=== PATIENT | male | born 1945 | race Caucasian/White ===

== ENCOUNTER 2022-07-13 09:56 | Emergency (ER) | payer MEDICARE ==
[~2022-07-13] VITALS: Ht 177.8 cm; Wt 102.0 kg
[2022-07-13 10:10] VITALS: BP 149/84
[2022-07-13] MEDS ORDERED: LIPITOR10 M1 PO (10:16)
[2022-07-13] MEDS ORDERED: ASPIRIN81 MG PO (10:17)
[2022-07-13] MEDS ORDERED: ZESTRIL40 MG PO (10:17)
[2022-07-13] MEDS ORDERED: MELOXICAM7.5 MG PO (10:17)
[2022-07-13 10:31] VITALS: BP 137/87
[2022-07-13 10:40] LABS: BASO% 0.4 % (0-3); EOS% 5.9 % (0-8); HEMATOCRIT 43.3 % (39.0-50.0); HEMOGLOBIN 13.6 g/dl (14.0-18.0); IMMATURE GRANULOCYTES 0.2 % (0.0-5.0); LYMPH% 22.6 % (15-41); MEAN CORPUSCULAR HGB 30.8 pG CALC (26.0-32.0); MEAN CORPUSCULAR HGB CONC 31.4 g/dL CAL (32.0-36.0); MONO% 9.8 % (2-13); NEUT# 3.01 thou/uL (1.82-7.42); NEUT% 61.1 % (42-76); RED BLOOD COUNT 4.42 mill/uL (4.70-6.10); RED CELL DISTRI WIDTH 14.2 % (11.5-15.5)
[2022-07-13 10:51] LABS: ALBUMIN 3.9 g/dL (3.2-5.0); ALKALINE PHOSPHATASE 78 u/l (38-126); ANION GAP 8 (6-22 (CALC)); BILIRUBIN, TOTAL 0.5 mg/dL (0.2-1.3); BUN 18 mg/dL (8-23); BUN/CREATININE RATIO 17 (12-20 (CALC)); CARBON DIOXIDE 27 mmol/l (22-30); CHLORIDE 106 mmol/l (95-108); CREATININE 1.1 mg/dL (0.7-1.3); GFR FOR AFR.AMER. > 60 ML/MIN (>=60 (CALC)); GFR OTHER RACES > 60 ML/MIN (>=60 (CALC)); LIPASE 114 u/l (23-300); POTASSIUM 4.3 mmol/l (3.5-5.1); SGOT/AST 37 u/l (19-48); SODIUM 137 mmol/l (137-146); TOTAL PROTEIN 6.5 g/dL (6.3-8.2)
[2022-07-13 11:00] VITALS: BP 151/80
[2022-07-13 11:07] LABS: URINE BILIRUBIN - DIPSTICK NEGATIVE (NEGATIVE); URINE BLOOD DIPSTICK NEGATIVE (NEGATIVE); URINE COLOR YELLOW; URINE GLUCOSE - DIPSTICK NEGATIVE (NEGATIVE); URINE KETONE NEGATIVE (NEGATIVE); URINE LEUK ESTERASE NEGATIVE (NEGATIVE); URINE PROTEIN - DIPSTICK NEGATIVE (NEG-TRACE); URINE SPECIFIC GRAVITY 1.025; URINE UROBILINOGEN - DIPSTICK 0.2 E.U./dL (0.2)
[2022-07-13 11:09] LABS: URINE NITRITE - DIPSTICK NEGATIVE (Negative)
[2022-07-13 11:31] VITALS: BP 151/84
[2022-07-13 12:30] VITALS: BP 151/80
[2022-07-13 13:01] VITALS: BP 166/90
== END 2022-07-13 13:20 | disposition home or self-care (01) ==
LOC: ED 09:56
PROVIDERS: Family Medicine
DX: R10.31 Right lower quadrant pain (principal); I10 Essential (primary) hypertension; E78.5 Hyperlipidemia, unspecified; Z95.1 Presence of aortocoronary bypass graft; Z95.5 Presence of coronary angioplasty implant and graft
CPT/HCPCS: Q9967